=== PATIENT | male | born 1980 | race African-American/Black ===

== ENCOUNTER 2016-11-02 04:01 | Emergency (ER) | payer OTHER ==
[~2016-11-02] VITALS: Ht 182.9 cm; Wt 158.8 kg
[~2016-11-02 04:01] MED LIST: RIZA5TAB17
[2016-11-02] MEDS ORDERED: HYDROCODONE/APAP 5/325MG 1 EACH TABLET ONE (04:18)
[2016-11-02 04:25] VITALS: BP 175/98
[2016-11-02] MEDS ORDERED: HYDROCODONE/APAP 5/325MG 1 EACH TABLET PO ONE (04:30)
== END 2016-11-02 05:02 | disposition home or self-care (01) ==
LOC: ER 04:01
DX: K08.89 Other specified disorders of teeth and supporting structures (principal); E11.9 Type 2 diabetes mellitus without complications; E78.00 Pure hypercholesterolemia, unspecified; I10 Essential (primary) hypertension; G43.909 Migraine, unspecified, not intractable, without status migrainosus; Z88.8 Allergy status to other drugs, medicaments and biological substances
CPT/HCPCS: 99283; A4606; Z7610

== ENCOUNTER 2017-02-24 12:55 | Emergency (ER) | payer OTHER ==
[~2017-02-24] VITALS: Ht 182.9 cm; Wt 122.5 kg
[2017-02-24 13:25] VITALS: BP 132/64
== END 2017-02-24 14:44 | disposition home or self-care (01) ==
LOC: ER 12:58
DX: J32.9 Chronic sinusitis, unspecified (principal); J06.9 Acute upper respiratory infection, unspecified; I10 Essential (primary) hypertension; Z91.041 Radiographic dye allergy status; F10.20 Alcohol dependence, uncomplicated; E78.00 Pure hypercholesterolemia, unspecified
CPT/HCPCS: 99283; A4606; Z7610

== ENCOUNTER 2017-10-25 13:08 | Emergency (ER) | payer OTHER ==
[~2017-10-25] VITALS: Ht 182.9 cm; Wt 109.8 kg
[2017-10-25 13:17] VITALS: BP 151/97
== END 2017-10-25 13:37 | disposition home or self-care (01) ==
LOC: ER 13:10
DX: K08.89 Other specified disorders of teeth and supporting structures (principal); E11.9 Type 2 diabetes mellitus without complications; E78.00 Pure hypercholesterolemia, unspecified; I10 Essential (primary) hypertension; F10.10 Alcohol abuse, uncomplicated; Z88.8 Allergy status to other drugs, medicaments and biological substances
CPT/HCPCS: 99283; A4606; Z7610

== ENCOUNTER 2020-08-11 13:51 | Emergency (ER) | payer OTHER ==
[~2020-08-11] VITALS: Ht 182.9 cm; Wt 117.9 kg
[2020-08-11 13:56] VITALS: BP 141/91
--- NOTE | 2020-08-11 14:11 | NUR ---
PT IS WHEELED TO RADIOLOGY FOR XRAY.
--- NOTE | 2020-08-11 15:27 | NUR ---
Patient discharged to home in stable condition. Written and verbal after care instructions given. Patient verbalizes understanding of instruction.
== END 2020-08-11 15:27 | disposition home or self-care (01) ==
LOC: ER 14:00
DX: S42.401A Unspecified fracture of lower end of right humerus, initial encounter for closed fracture (principal); I10 Essential (primary) hypertension; E11.9 Type 2 diabetes mellitus without complications; E78.00 Pure hypercholesterolemia, unspecified; Z98.890 Other specified postprocedural states; Z79.899 Other long term (current) drug therapy; Z88.8 Allergy status to other drugs, medicaments and biological substances; W51.XXXA Accidental striking against or bumped into by another person, initial encounter; Y93.71 Activity, boxing; Y92.89 Other specified places as the place of occurrence of the external cause; Y99.8 Other external cause status
CPT/HCPCS: 73080-TC

== ENCOUNTER 2021-05-13 13:00 | Emergency (ER) | payer OTHER ==
[~2021-05-13] VITALS: Ht 182.9 cm; Wt 117.9 kg
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
[2021-05-13 15:00] VITALS: BP 144/83
--- NOTE | 2021-05-13 15:00 | NUR ---
Patient discharged to home in stable condition. Written and verbal after care instructions given. Patient verbalizes understanding of instruction.
== END 2021-05-13 15:00 | disposition home or self-care (01) ==
LOC: ER 13:00
DX: S23.41XA Sprain of ribs, initial encounter (principal); R09.82 Postnasal drip; I10 Essential (primary) hypertension; E11.9 Type 2 diabetes mellitus without complications; E78.00 Pure hypercholesterolemia, unspecified; Z98.890 Other specified postprocedural states; Z91.048 Other nonmedicinal substance allergy status; W51.XXXA Accidental striking against or bumped into by another person, initial encounter; Y93.89 Activity, other specified; Y92.89 Other specified places as the place of occurrence of the external cause; Y99.8 Other external cause status
CPT/HCPCS: 71100-TC

== ENCOUNTER 2022-05-17 11:30 | Emergency (ER) | payer OTHER ==
[~2022-05-17] VITALS: Ht 182.9 cm; Wt 127.0 kg
--- NOTE | 2022-05-17 11:50 | NUR ---
Patient came in to the er c/o Left flank pain for few days. On room air, breathing evenly and unlabored. Connected to the monitor and pulse ox. Kept comfortable, will continue to monitor accordingly.
--- NOTE | 2022-05-17 11:55 | NUR ---
IV access initited on the RAC G18 blood drawned and sent to lab.
[2022-05-17] MEDS ORDERED: IV NS 0.9% 500 ML BAG IV ONE (12:00)
[2022-05-17 12:02] LABS: BASOPHILS % (AUTO) 0.3 % (0.0-2.0); HEMATOCRIT 38 % (39-51); HEMOGLOBIN 12.3 g/dL (13.5-17.5); LYMPHOCYTES # (AUTO) 2.7 K/uL (0.8-4.8); LYMPHOCYTES % (AUTO) 38.7 % (20.0-44.0); MEAN CORPUSCULAR HGB CONC 32 g/dl (31.0-36.0); MEAN CORPUSCULAR VOLUME 80 fL (80-96); MONOCYTES # (AUTO) 0.7 K/uL (0.1-1.30); MONOCYTES % (AUTO) 10.6 % (2.0-12.0); NEUTROPHILS # (AUTO) 3.4 K/uL (1.8-8.9); NEUTROPHILS % (AUTO) 49.4 % (43.0-81.0); PLATELET COUNT (AUTO) 296 K/uL (150-450); RED BLOOD CELL COUNT(AUTO) 4.79 MIL/uL (4.5-6.0); WHITE BLOOD COUNT (AUTO) 6.8 K/uL (4.3-11.0)
--- NOTE | 2022-05-17 12:03 | NUR ---
Patient verbalized that "i don't have any allergy, I eat fish and shellfish all the time and i don't have any reaction". MD notified and aware.
[2022-05-17 12:20] LABS: ALANINE AMINOTRANSFERASE 36 U/L (12-78); ALBUMIN 3.5 g/dL (3.4-5.0); ALKALINE PHOSPHATASE 107 U/L (46-116); ASPARTATE AMINOTRANSFERASE 22 U/L (15-37); BILIRUBIN,DIRECT 0.1 mg/dL (0.0-0.2); BILIRUBIN,TOTAL 0.3 mg/dL (0.2-1.0); CALCIUM, SERUM 8.4 mg/dL (8.5-10.1); CARBON DIOXIDE 28 mmol/L (21-32); CHLORIDE 103 mmol/L (98-107); CREATININE 0.7 mg/dL (0.6-1.3); GLUCOSE 73 mg/dL (74-106); LIPASE 97 U/L (73-393); SODIUM SERUM 135 mmol/L (136-145); UREA NITROGEN, BLOOD 13 mg/dL (7-18)
[2022-05-17] MEDS ORDERED: IOHEXOL-350 100 ML VIAL IV ONE (12:41)
[2022-05-17] MEDS ORDERED: IV NS 0.9% 250 ML IV ONE (12:41)
--- NOTE | 2022-05-17 12:42 | NUR ---
PT TAKEN TO CT VIA [facility]
[2022-05-17 13:47] LABS: BILIRUBIN,URINE NEGATIVE (NEGATIVE); COLOR,URINE YELLOW (YELLOW); LEUKOCYTE ESTERASE ,URINE NEGATIVE (NEGATIVE); NITRITE, URINE NEGATIVE (NEGATIVE); PROTEIN,URINE NEGATIVE (NEGATIVE); UGLUCOSE NEGATIVE (NEGATIVE); UROBILINOGEN,URINE 0.2 EU/dL (0.2)
[2022-05-17] MEDS ORDERED: NAPR-1192 PO (14:14)
[2022-05-17] MEDS ORDERED: CYCL5TAB PO (14:14)
[2022-05-17 14:53] VITALS: BP 134/77
--- NOTE | 2022-05-17 14:54 | NUR ---
Patient discharged to home in stable condition. Written and verbal after care instructions given. Patient verbalizes understanding of instruction.IV removed. Catheter intact and site benign. Pressure and 4x4 applied to site. No bleeding noted.
== END 2022-05-17 14:53 | disposition home or self-care (01) ==
LOC: ER 11:39
DX: S39.012A Strain of muscle, fascia and tendon of lower back, initial encounter (principal); I10 Essential (primary) hypertension; E11.9 Type 2 diabetes mellitus without complications; E78.00 Pure hypercholesterolemia, unspecified; Z98.890 Other specified postprocedural states; Z79.899 Other long term (current) drug therapy; X58.XXXA Exposure to other specified factors, initial encounter; Y93.89 Activity, other specified; Y92.89 Other specified places as the place of occurrence of the external cause; Y99.8 Other external cause status
CPT/HCPCS: 99285; 74177; 85025; 80048; 83690; 80076; 81003; 36415; 84484; 85730; J7050; J7040 ×2; Q9967

== ENCOUNTER 2024-10-25 17:14 | Emergency (ER) | payer OTHER ==
[~2024-10-25] VITALS: Ht 182.9 cm; Wt 136.1 kg
[~2024-10-25 17:14] MED LIST changes: +CYCL5TAB PO; +NAPR-1192 PO
[2024-10-25 20:21] LABS: APPEARANCE,URINE CLEAR (CLEAR); BILIRUBIN,URINE NEGATIVE (NEGATIVE); BLOOD, URINE TRACE-INTA Ery/uL (NEGATIVE); COLOR,URINE YELLOW (YELLOW); KETONES,URINE 2+ mg/dL (NEGATIVE); LEUKOCYTE ESTERASE ,URINE 1+ (NEGATIVE); NITRITE, URINE NEGATIVE (NEGATIVE); PROTEIN,URINE NEGATIVE (NEGATIVE); UGLUCOSE 3+ mg/dL (NEGATIVE); UROBILINOGEN,URINE 0.2 EU/dL (0.2)
[2024-10-25 21:21] LABS: ADD URINE CULTURE YES; BACTERIA,URINE 1+ /HPF (None Seen)
[2024-10-25] MEDS ORDERED: CIPR-262 PO (21:45)
[2024-10-25] MEDS ORDERED: CLOT15CR27 TP (21:45)
[2024-10-25] MEDS ORDERED: MAG HYDROX/AL HYDROX/SIMETH 30 ML UDC ONE (23:18)
[2024-10-25] MEDS: MAG HYDROX/AL HYDROX/SIMETH 30 ML UDC PO ONE (23:37)
[2024-10-26 00:51] VITALS: BP 147/82; TEMP 98.1; O2SAT 95
== END 2024-10-26 00:53 | disposition home or self-care (01) ==
LOC: ER 17:28
DX: N48.89 Other specified disorders of penis (principal); R36.9 Urethral discharge, unspecified; E11.9 Type 2 diabetes mellitus without complications; E78.00 Pure hypercholesterolemia, unspecified; I10 Essential (primary) hypertension; E78.5 Hyperlipidemia, unspecified
CPT/HCPCS: 81001; 87086-TC; 87491; 87591